=== PATIENT | male | born 1960 | race Two or more races ===

== ENCOUNTER 2022-06-16 18:04 | Emergency (ER) | payer MEDICAID ==
[~2022-06-16] VITALS: Ht 182.9 cm; Wt 78.0 kg
--- NOTE | 2022-06-16 18:06 | NUR ---
PT BIBRA FROM HOME TO ED BED 09, PER [employer] ARCHITECT REPORT, NEIGHBOR CALLED 911 AFTER WELFARE CHECK AND NOTICE PATIENT NOT TALKING BACK TO THEM. 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 NOTED APHASIA, NO NOTED UNILATERAL WEAKNESS AND FACIAL DROOP NOTED. PER KARLA COUSIN, PT LIVES ALONE AND LAST KNOWN WELL WAS 10 DAYS AGO. GOWNED AND PLACED ON MONITOR. AWAITING MD ADAN.
--- NOTE | 2022-06-16 18:18 | NUR ---
DR GILL AT BEDSIDE FOR EVAL.
--- NOTE | 2022-06-16 18:25 | NUR ---
PATIENTS COUSIN CALLED. KARLA LEFT CONTACT # [phone],
--- NOTE | 2022-06-16 18:30 | NUR ---
PT TAKEN TO CT VIA JUDE
--- NOTE | 2022-06-16 18:30 | NUR ---
CODE STROKE ACTIVATED
[2022-06-16] MEDS ORDERED: CT SWABBABLE VALVE TRANS SET 1 EA INFUS.SET MC ONE (18:37)
[2022-06-16] MEDS ORDERED: IV NS 0.9% 250 ML IV ONE (18:37)
[2022-06-16] MEDS ORDERED: IOHEXOL-350 100 ML VIAL IV ONE (18:37)
--- NOTE | 2022-06-16 18:38 | NUR ---
DR. GILL ON THE PHONE WITH NEUROLOGIST DR. UMANZOR
[2022-06-16] MEDS: IV NS 0.9% 1,000 ML BAG IV ONE (18:55)
--- NOTE | 2022-06-16 18:56 | NUR ---
SENT DR. ANDRES MILLIGAN.
--- NOTE | 2022-06-16 19:02 | NUR ---
COVID SWAB DONE AND SENT TO LAB
[2022-06-16] MEDS ORDERED: DEXAMETHASONE SOD PHOSPHATE 10 MG/ML VIAL ONE (19:25)
[2022-06-16] MEDS ORDERED: LEVETIRACETAM (500MG) 500 MG/5 ML VIAL IV ONE (19:26)
[2022-06-16 19:29] LABS: ALANINE AMINOTRANSFERASE 39 U/L (12-78); ALBUMIN 3.3 g/dL (3.4-5.0); ALKALINE PHOSPHATASE 79 U/L (46-116); ASPARTATE AMINOTRANSFERASE 57 U/L (15-37); BILIRUBIN,DIRECT 0.6 mg/dL (0.0-0.2); BILIRUBIN,TOTAL 1.2 mg/dL (0.2-1.0); CALCIUM, SERUM 9.7 mg/dL (8.5-10.1); CARBON DIOXIDE 29 mmol/L (21-32); CHLORIDE 119 mmol/L (98-107); CREATININE 2.6 mg/dL (0.6-1.3); GLUCOSE 192 mg/dL (74-106); POTASSIUM 3.9 mmol/L (3.5-5.1); TOTAL PROTEIN, SERUM 8.3 g/dL (6.4-8.2)
[2022-06-16 19:35] LABS: SODIUM SERUM 156 mmol/L (136-145); UREA NITROGEN, BLOOD 82 mg/dL (7-18)
[2022-06-16] MEDS: LEVETIRACETAM (500MG) 1,000 MG in IV NS 0.9% 100 ML IV ONE (19:37)
[2022-06-16] MEDS: DEXAMETHASONE SOD PHOSPHATE 10 MG/ML VIAL IV ONE (19:37)
[2022-06-16 20:00] LABS: BASOPHILS % (AUTO) 0.1 % (0.0-2.0); EOSINOPHILS % (AUTO) 0.2 % (0.0-6.0); HEMATOCRIT 47 % (39-51); HEMOGLOBIN 15.3 g/dL (13.5-17.5); LYMPHOCYTES # (AUTO) 0.8 K/uL (0.8-4.8); LYMPHOCYTES % (AUTO) 5.9 % (20.0-44.0); MEAN CORPUSCULAR HGB CONC 32 g/dl (31.0-36.0); MEAN CORPUSCULAR VOLUME 84 fL (80-96); MONOCYTES # (AUTO) 0.7 K/uL (0.1-1.30); MONOCYTES % (AUTO) 5.6 % (2.0-12.0); NEUTROPHILS # (AUTO) 11.7 K/uL (1.8-8.9); NEUTROPHILS % (AUTO) 88.2 % (43.0-81.0); PLATELET COUNT (AUTO) 307 K/uL (150-450); WHITE BLOOD COUNT (AUTO) 13.2 K/uL (4.3-11.0)
--- NOTE | 2022-06-16 20:19 | NUR ---
UPDATED (KARLA) [phone] ON PT'S STATUS PER PT'S WISHES DID NOT WANT FAMILY TO KNOW DIAGNOSIS
[2022-06-16] MEDS ORDERED: VANCOMYCIN 1 GM VIAL ONE (20:33)
[2022-06-16] MEDS ORDERED: PIPERACILLIN /TAZOBACTAM 3.375 G VIAL IV ONE (20:33)
--- NOTE | 2022-06-16 20:35 | NUR ---
FAXED FACESHEET AND CLINICALS TO [facility], AWAITING ETA PER CHERELLE JAVIER.
[2022-06-16] MEDS: PIPERACILLIN /TAZOBACTAM 3.375 G in IV D5W 50 ML IV ONE (20:38)
[2022-06-16 20:40] VITALS: BP 126/75
--- NOTE | 2022-06-16 21:01 | NUR ---
COVID RESULT FAXED TO [facility]
--- NOTE | 2022-06-16 21:11 | NUR ---
BED - 4401 REPORT # [phone] [facility] ETA @[phone]
[2022-06-16] MEDS: VANCOMYCIN 1 GM in IV D5W 250 ML IV ONE (21:12)
--- NOTE | 2022-06-16 21:23 | NUR ---
REPORT GIVEN TO JOHN JAVIER FROM [facility].
--- NOTE | 2022-06-16 22:08 | NUR ---
UPDATED (KARLA) [phone] ON PT TRANSFERING TO [facility]
--- NOTE | 2022-06-16 22:42 | NUR ---
REPORT GIVEN TO [facility] TO TRANSPORT PT TO [facility]S BED[facility]IDE
== END 2022-06-16 23:26 | disposition short-term general hospital (02) ==
LOC: ER 18:13
DX: C34.90 Malignant neoplasm of unspecified part of unspecified bronchus or lung (principal); C79.31 Secondary malignant neoplasm of brain; E87.0 Hyperosmolality and hypernatremia; E86.0 Dehydration; R41.0 Disorientation, unspecified; N28.9 Disorder of kidney and ureter, unspecified; Z20.822 Contact with and (suspected) exposure to COVID-19; I10 Essential (primary) hypertension
CPT/HCPCS: 99285; 70496; 96365; 96367; 71045; 96361; 96375; 87426; 93005; 87040 ×3; 82140; 85025; 80048; 83605 ×2; 80076; 36415; 84484; 85730; 82962; 70450; J1100; J3370; J2543; J7030 ×2; J7050; J1953; Q9967; C9803; J7060